=== PATIENT | female | born 1980 | race Caucasian/White ===

== ENCOUNTER → 2020-12-07 | Outpatient (CLI) | payer OTHER ==
--- NOTE | 2020-12-07 16:55 | REP ---
INDICATION: YENI DIAG MAMMO/R BREAST PAIN/IMPLANTS/FAM HX; RIGHT BREAST PAIN/IMPLANTS/FAM HX. COMPARISON: No comparison breast imaging. TECHNIQUE: Bilateral CC and MLO) view(s) were taken. Implant included an implant displaced views are obtained bilaterally. 3D tomography is carried out. Targeted right breast sonography is performed in the area the patient's pain. FINDINGS: Breast parenchyma is heterogeneously dense. This may inhibit sensitivity mammography. Implant margins are smooth. No masses seen mammographically. No area of architectural distortion or microcalcification is seen. No suspicious mammographic abnormality. The Volpara volumetric breast density pattern is D. Targeted right breast sonography. Right breast is examined sonographically in the 3-5 o'clock region of the patient's pain. At 3 o'clock, 4 cm from the nipple, there is a 4 mm cyst. No mass lesion is observed. No acoustic shadowing is seen. No suspicious ultrasound finding.. IMPRESSION: BIRADS/ACR category 2 benign mammographic and sonographic findings. No suspicious abnormality.. This patient's Tyrer-Cuzick lifetime breast cancer risk assessment score is 12.6%. This mammogram was interpreted with the aid of an FDA-approved computer-aided detection system. The patient states she had a clinical breast exam in over a year ago. The patient letter being requested is M2 dense. RECOMMENDATION: Repeat screening mammography recommended 1 year (for women over 40). Clinical follow-up is advised. <Electronically signed by Jorge José > 12/07/20 [id number]
== END ==
LOC: M WHC 14:23
PROVIDERS: ATTEND Family Medicine
DX: Z12.31 Encounter for screening mammogram for malignant neoplasm of breast (principal); Z98.82 Breast implant status; N60.01 Solitary cyst of right breast
CPT/HCPCS: 76642; 77066; G0279

== ENCOUNTER → 2021-01-03 | Outpatient (CLI) | payer OTHER ==
[~2021-01-03] MED LIST: ALLE180T33 PO; CYAN500T14 PO; VITA200048 PO
== END ==
LOC: M LABSMTC 09:54
PROVIDERS: ATTEND Anesthesiology
DX: Z01.812 Encounter for preprocedural laboratory examination (principal)

== ENCOUNTER 2021-01-08 08:53 | Outpatient (CLI) | payer OTHER ==
[2021-01-08 10:30] VITALS: BP 143/81
--- NOTE | 2021-01-08 10:54 | REP ---
INDICATION: RT SHOULDER PAIN / W SEDATION. COMPARISON: None. TECHNIQUE: Coronal oblique T1, T2 fat sat, sagittal oblique T2 fat sat, axial T2 fat sat, gradient echo. FINDINGS: Rotator cuff: There is mild supraspinatus tendinopathy with mild fraying of the bursal surface of the tendon beneath the acromion. Acromioclavicular joint: There are mild hypertrophic degenerative changes of the acromioclavicular joint with a tiny amount of fluid in the joint Acromion: Type 2. There is mild subacromial spurring. Biceps Tendon: In bicipital groove, with mild surrounding fluid. Hill Sach's deformity: None. Deltoid muscle: No abnormal signal. Biceps labral complex: Intact. Labrum: No tear. Cartilage: No defects. Bone marrow: There are couple of tiny subcortical cysts in the superolateral humeral head. Joint fluid: No effusion. IMPRESSION: There is mild supraspinatus tendinopathy with mild fraying of the bursal surface of the tendon beneath the acromion. There are mild hypertrophic degenerative changes of the acromioclavicular joint with a type 2 acromion and mild subacromial spurring. No evidence of a labral tear. <Electronically signed by Geoff Richmond > 01/08/21 [id number]
== END 2021-01-08 10:53 | disposition home or self-care (01) ==
LOC: M SDC 08:53
PROVIDERS: ATTEND Family Medicine
DX: M25.511 Pain in right shoulder (principal)

== ENCOUNTER → 2022-02-12 | Outpatient (CLI) | payer OTHER | LOC: M WHC 10:03 | PROVIDERS: ATTEND Family Medicine | DX: R92.2 Inconclusive mammogram (principal) ==

== ENCOUNTER → 2022-02-25 | Outpatient (CLI) | payer OTHER | LOC: M WHC 12:59 | PROVIDERS: ATTEND Family Medicine | DX: R91.8 Other nonspecific abnormal finding of lung field (principal); N63.15 Unspecified lump in the right breast, overlapping quadrants | CPT/HCPCS: 77065; G0279 ==

== ENCOUNTER → 2022-04-27 | Outpatient (CLI) | payer OTHER | LOC: M LABSMTC 10:45 | PROVIDERS: ATTEND Anesthesiology | DX: Z01.812 Encounter for preprocedural laboratory examination (principal); Z20.822 Contact with and (suspected) exposure to COVID-19 ==

== ENCOUNTER 2022-04-29 10:31 | Outpatient (CLI) | payer OTHER ==
[2022-04-29 12:40] VITALS: BP 148/82
== END 2022-04-29 12:42 | disposition home or self-care (01) ==
LOC: M SDC 10:31
PROVIDERS: ATTEND Student in an Organized Health Care Education/Training Program
DX: M50.222 Other cervical disc displacement at C5-C6 level (principal); M50.223 Other cervical disc displacement at C6-C7 level

== ENCOUNTER → 2023-02-16 | Outpatient (CLI) | payer OTHER | LOC: M WHC 08:39 | PROVIDERS: ATTEND Family Medicine | DX: Z12.31 Encounter for screening mammogram for malignant neoplasm of breast (principal) ==

== ENCOUNTER 2023-12-29 19:30 | Emergency (ER) | payer OTHER ==
[~2023-12-29] VITALS: Ht 157.5 cm; Wt 87.3 kg
[2023-12-29 20:17] LABS: EOS % 0.1 % (0.0-3.0); HEMATOCRIT 41.8 % (36.0-47.0); HEMOGLOBIN 13.9 g/dl (12.0-15.5); LYMPH # 0.8 10^3/uL (1.5-5.0); LYMPH % 7.7 % (24.0-44.0); MEAN CORPUSCULAR HEMOGLOBIN 27.1 pg (27.0-33.0); MEAN CORPUSCULAR HGB CONC 33.3 g/dl (32.0-36.5); MEAN CORPUSCULAR VOLUME 81.5 fl (80.0-96.0); MONO # 0.2 10^3/uL (0.0-0.8); MONO % 1.7 % (2.0-8.0); NEUTROPHILS # 9.8 10^3/uL (1.5-8.5); NEUTROPHILS % 90.3 % (36.0-66.0); PLATELET COUNT, AUTOMATED 279 10^3/uL (150-450); RED BLOOD COUNT 5.13 10^6/uL (4.00-5.40); WHITE BLOOD COUNT 10.9 10^3/uL (4.0-10.0)
[2023-12-29 20:28] LABS: ERYTHROCYTE SEDIMENTATION RATE 33 mm/hr (0-20)
[2023-12-29 20:50] LABS: ALBUMIN 3.9 G/DL (3.2-5.2); ALKALINE PHOSPHATASE 69 U/L (46-116); ALT/SGPT 40 U/L (7.0-40); AST/SGOT 20 U/L (<34); BILIRUBIN,DIRECT < 0.1 MG/DL (<0.4); BILIRUBIN,TOTAL 0.2 MG/DL (0.3-1.2); BLOOD UREA NITROGEN 14 MG/DL (9-23); C REACTIVE PROTEIN QUANTITATIV < 0.40 MG/DL (<1.0); CALCIUM LEVEL 9.1 MG/DL (8.5-10.1); CARBON DIOXIDE LEVEL 23 MMOL/L (20-31); CHLORIDE LEVEL 106 MMOL/L (98-107); CK-MB VALUE MASS < 1.0 NG/ML (<3.6); CPK CREATINE PHOSPHOKINASE 99 U/L (34-145); CREATININE FOR GFR 0.71 MG/DL (0.55-1.30); GLOMERULAR FILTRATION RATE > 60.0 (>58); GLUCOSE, FASTING 166 MG/DL (60-100); MB/CK RELATIVE INDEX 1.01 (< OR =4); POTASSIUM SERUM 4.1 MMOL/L (3.5-5.1); SODIUM LEVEL 139 MMOL/L (136-145); TOTAL PROTEIN 7.6 G/DL (5.7-8.2)
[2023-12-30] MEDS: methylPREDNISolone 125MG 2ML VIAL IV ONE (00:54)
[2023-12-30] MEDS: diphenhydrAMINE 50MG/ML VIAL IV ONE (00:55)
[2023-12-30] MEDS: FAMOTIDINE IV BAG 20 MG in IV 1 EA IV ONE (00:59)
[2023-12-30] MEDS: ANUSOL HC CREAM 30GM TOP ONE (01:44)
[2023-12-30 02:25] VITALS: BP 125/58; TEMP 97.4; O2SAT 98
[2023-12-30] MEDS ORDERED: PRED20TA PO (02:50)
[2023-12-30] MEDS ORDERED: HYDR25OIN TOP (02:51)
== END 2023-12-30 03:18 | disposition home or self-care (01) ==
LOC: M ED 19:30
DX: T78.40XA Allergy, unspecified, initial encounter (principal); R21 Rash and other nonspecific skin eruption; R00.0 Tachycardia, unspecified; F10.10 Alcohol abuse, uncomplicated; Z88.5 Allergy status to narcotic agent; Z98.82 Breast implant status; Z79.52 Long term (current) use of systemic steroids; Z79.899 Other long term (current) drug therapy
CPT/HCPCS: 80048; 80076; 82550; 82553; 84484; 85025; 85652; 86140; 93005; 96374; 96375; 99284; J1200; J2919; S0028

== ENCOUNTER → 2024-04-29 | Outpatient (CLI) | payer OTHER ==
[~2024-04-29] MED LIST changes: +HYDR25OIN TOP; +PRED20TA PO
== END ==
LOC: M WHC 15:49
PROVIDERS: ATTEND Family Medicine
DX: Z12.31 Encounter for screening mammogram for malignant neoplasm of breast (principal)

== ENCOUNTER → 2025-05-16 | Outpatient (CLI) | payer OTHER | LOC: M WHC 15:43 | PROVIDERS: ATTEND Family Medicine | DX: Z12.31 Encounter for screening mammogram for malignant neoplasm of breast (principal); R92.323 Mammographic fibroglandular density, bilateral breasts ==